=== PATIENT | female | born 1965 | race Caucasian/White ===

== ENCOUNTER 2022-05-29 13:51 | Outpatient (CLI) | payer OTHER, SELFPAY ==
[2022-05-29 15:30] LABS: Albumin* 4.7 g/dL (3.3-5.0); Chloride* 107 mmol/L (96-114); Sodium* 144 mmol/L (135-149)
[2022-05-29 15:33] LABS: Alanine Aminotransferase* 29 U/L (4-35); Alkaline Phosphatase* 110 U/L (40-150); Aspartate Amino Transferase* 29 U/L (12-35); Bilirubin Total* 0.9 mg/dL (0.1-1.5); Blood Urea Nitrogen* 13 mg/dL (7-30); Calcium* 10.3 mg/dL (8.4-10.6); Carbon Dioxide* 26 mmol/L (20-32); Cholesterol* 209 mg/dL (90-199); Creatinine* 0.6 mg/dL (0.5-1.5); Estimated Glomerular Filt Rate 105 ml/min; Glucose* 94 mg/dL (60-115); Total Protein* 8.2 g/dL (6.0-8.3); Triglycerides* 153 mg/dL (40-149)
[2022-05-29 15:34] LABS: HDL Cholesterol* 84 mg/dL (>=50); LDL Cholesterol Calculated 94 mg/dL (<100)
[2022-06-08 12:40] LABS: Sex Hormone Binding Globulin 90 nmol/L (17-125); Testosterone, Free LC-MS/MS 3.1 pg/mL (0.6-3.8); Testosterone, LC-MS/MS 36 ng/dL (9-55)
== END 2022-05-29 13:52 | disposition home or self-care (01) ==
PROVIDERS: PCP Family Medicine; Visit Provider Obstetrics & Gynecology
DX: Z01.419 Encounter for gynecological examination (general) (routine) without abnormal findings (principal); Z13.6 Encounter for screening for cardiovascular disorders; Z13.1 Encounter for screening for diabetes mellitus; Z13.29 Encounter for screening for other suspected endocrine disorder; Z78.0 Asymptomatic menopausal state; Z11.3 Encounter for screening for infections with a predominantly sexual mode of transmission; Z12.4 Encounter for screening for malignant neoplasm of cervix
CPT/HCPCS: 80053; 80061; 84270; 84402; 84403; 84443